=== PATIENT | male | born 1960 | race Caucasian/White ===

== ENCOUNTER 2020-09-14 08:38 | Day surgery (SDC) | payer OTHER, SELFPAY ==
[~2020-09-14] VITALS: Ht 162.6 cm; Wt 72.6 kg
[2020-09-14] MEDS ORDERED: GLYCOPYRROLATE 0.2 MG/ML VIAL ONE (09:17)
[2020-09-14] MEDS ORDERED: SIMETHICONE 40 MG/0.6 ML ML ONE (09:17)
[2020-09-14] MEDS: MIDAZOLAM HCL 5 MG/5 ML VIAL ONE ×3 (09:23→09:27)
[2020-09-14] MEDS: MEPERIDINE 100 MG INJ. 100 MG/ML VIAL ONE ×3 (09:23→09:31)
[2020-09-14 10:03] VITALS: BP_SYST 128
== END 2020-09-14 11:00 | disposition home or self-care (01) ==
LOC: SDS 08:38 → SMU 08:39 → SDS 11:00
PROVIDERS: ATTEND Colon & Rectal Surgery
DX: Z12.11 Encounter for screening for malignant neoplasm of colon (principal); K63.5 Polyp of colon; K64.8 Other hemorrhoids; Z86.010 Personal history of colon polyps; E03.9 Hypothyroidism, unspecified; F32.9 Major depressive disorder, single episode, unspecified; K40.90 Unilateral inguinal hernia, without obstruction or gangrene, not specified as recurrent; F41.9 Anxiety disorder, unspecified; Z20.822 Contact with and (suspected) exposure to COVID-19; Z79.899 Other long term (current) drug therapy
CPT/HCPCS: 45380; 88305; 99152; 99153; G0378; J2175; J2250; U0003; J3490

== ENCOUNTER 2020-09-21 12:38 | Day surgery (SDC) | payer OTHER, SELFPAY ==
[~2020-09-21] VITALS: Ht 162.6 cm; Wt 72.6 kg
[~2020-09-21 12:38] MED LIST: CEFAZOLIN SOD 1 GM in D5W 50 ML IV ONE
[2020-09-21] MEDS ORDERED: METOCLOPRAMIDE HCL 10 MG/2 ML VIAL IVP PRN (13:45)
[2020-09-21] MEDS ORDERED: fentaNYL CITRATE/PF 100 MCG/2 ML AMP IVP PRN ×2 (13:45)
[2020-09-21] MEDS ORDERED: ONDANSETRON HCL 4 MG/2 ML VIAL IVP PRN (13:45)
[2020-09-21] MEDS ORDERED: POLYMYXIN 500,000/BACIT.10,000 UNITS in NS IRR 1 L IR ONE (14:03)
[2020-09-21] MEDS ORDERED: HYDROmorphone 1 MG/ML INJ. CARTRIDGE IVP PRN (14:30)
[2020-09-21] MEDS ORDERED: HYDROcodone/ACETAMIN 5-325 MG TAB (NORCO/ VICODIN) PO PRN ×2 (14:30)
[2020-09-21 15:20] VITALS: BP_SYST 134
[2020-09-21] MEDS ORDERED: D5/0.45 NS 1,000 ML IV SCH (15:45)
== END 2020-09-21 16:20 | disposition home or self-care (01) ==
LOC: SDS 12:38 → SMU 12:41 → SDS 16:20
PROVIDERS: ATTEND Colon & Rectal Surgery
DX: K40.90 Unilateral inguinal hernia, without obstruction or gangrene, not specified as recurrent (principal); Z20.822 Contact with and (suspected) exposure to COVID-19; Z79.899 Other long term (current) drug therapy
CPT/HCPCS: 49505; J0690; J7060; U0003; C1781